=== PATIENT | male | born 1950 | race Caucasian/White ===

== ENCOUNTER 2018-08-22 09:41 | Emergency (ER) | payer OTHER ==
[~2018-08-22] VITALS: Ht 198.1 cm; Wt 90.7 kg
[~2018-08-22 09:41] MED LIST: ALBU90OI61 INH; AMLO5 PO; ASPI325EC PO; ATOR10 PO; CEPH500 PO; CIPRO500 MG PO; ESOM20; Flomax0.4 MG PO; HYDACE7.5 PO; INSN100I; INSR10I; INSULANPEN SC; Ibuprofen Ib200 MG PO; LISI20 PO; LISI5; METF500; METF500C PO; Mobic7.5 MG PO; Omeprazole20 M1 PO; Percocet 10-321 EACH PO; Percocet 5-3251 EACH PO; TRAM50 PO; Zofran Odt4 MG SL
[2018-08-22 11:39] LABS: BASOPHILS ABSOLUTE AUTO 0.05 K/mm3 (0.00-0.23); BASOPHILS PERCENT AUTO 1 % (0-2); EOSINOPHILS ABSOLUTE AUTO 0.03 K/mm3 (0.00-0.68); EOSINOPHILS PERCENT AUTO 0 % (0-6); Hematocrit 34.1 % (37.0-53.0); Hemoglobin 11.4 g/dL (13.5-17.5); IMMATURE GRAN ABSOLUTE AUTO 0.03 K/mm3 (0.00-0.10); IMMATURE GRAN PERCENT AUTO 0 % (0-1); LYMPHOCYTES ABSOLUTE AUTO 1.99 K/mm3 (0.84-5.20); LYMPHOCYTES PERCENT AUTO 21 % (21-46); MONOCYTES PERCENT AUTO 6 % (4-13); Mean Corpuscular HGB 29.9 pg (26.0-34.0); Mean Corpuscular HGB Conc 33.4 g/dL (31.5-36.5); Mean Corpuscular Volume 90 fL (80-100); Mean Platelet Volume 9.8 fL (9.1-12.4); NEUTROPHILS ABSOLUTE AUTO 7.03 K/mm3 (1.96-9.15); NEUTROPHILS PERCENT AUTO 72 % (41-73); Platelet Count 515 K/mm3 (150-400); RDW Coefficient Variation 12.4 % (11.7-14.2); RDW Standard Deviation 40.2 fL (35.1-46.3); Red Blood Cell Count 3.81 M/mm3 (4.30-5.90); White Blood Cell Count 9.73 K/mm3 (4.00-11.30)
== END 2018-08-22 14:20 | disposition home or self-care (01) ==
LOC: ER 09:41
PROVIDERS: Physician Assistant
DX: M96.830 Postprocedural hemorrhage of a musculoskeletal structure following a musculoskeletal system procedure (principal); E11.9 Type 2 diabetes mellitus without complications; I10 Essential (primary) hypertension; J45.909 Unspecified asthma, uncomplicated; Z79.899 Other long term (current) drug therapy; Z79.4 Long term (current) use of insulin; Z79.82 Long term (current) use of aspirin; Z96.641 Presence of right artificial hip joint
CPT/HCPCS: 36415; 85025; 86850; 86900; 86901; 96372; 99283; J1170

== ENCOUNTER 2018-08-25 10:46 | Day surgery (SDC) | payer OTHER ==
[~2018-08-25] VITALS: Ht 188 cm; Wt 106.6 kg
== END 2018-08-25 22:39 | disposition home or self-care (01) ==
LOC: ORSCMMR 10:46
PROVIDERS: Orthopaedic Surgery
PROC: 0S990ZZ Drainage of Right Hip Joint, Open Approach (ICD-10-PCS; principal; 2018-08-25 12:30)
DX: M96.840 Postprocedural hematoma of a musculoskeletal structure following a musculoskeletal system procedure (principal); E11.9 Type 2 diabetes mellitus without complications; I10 Essential (primary) hypertension; Z79.4 Long term (current) use of insulin; Z79.899 Other long term (current) drug therapy
CPT/HCPCS: 82947; J0690; J1100; J1885; J2250; J2405; J2710; J3010; J7120

== ENCOUNTER 2020-12-17 10:32 | Emergency (ER) | payer OTHER ==
[~2020-12-17] VITALS: Ht 188 cm; Wt 103.9 kg
[2020-12-17] MEDS ORDERED: CEPH500 PO (11:14)
== END 2020-12-17 11:33 | disposition home or self-care (01) ==
LOC: ER 10:32
DX: K04.7 Periapical abscess without sinus (principal); L03.211 Cellulitis of face; E11.9 Type 2 diabetes mellitus without complications; I10 Essential (primary) hypertension; Z79.4 Long term (current) use of insulin; Z79.82 Long term (current) use of aspirin; Z79.899 Other long term (current) drug therapy
CPT/HCPCS: 96372; 99283-25; J0696

== ENCOUNTER 2021-07-19 07:26 | Day surgery (SDC) | payer OTHER ==
--- NOTE | 2021-07-19 08:18 | NUR ---
07/19/21 0818 FILIPPO CHONG PT'S BLOOD PRESSURE ELEVATED IN PRE OP. DR. CRUM AND DR. LESLIE NOTIFIED. DECISION WAS MADE BY BOTH DR. CRUM AND DR. LESLIE TO CANCEL SURGERY FOR TODAY AND HAVE PT FOLLOW UP WITH PRIMARY CARE DOCTOR REGARDING BLOOD PRESSURE. PT EXPRESSED UNDERSTANDING.
== END 2021-07-19 08:11 | disposition home or self-care (01) ==
LOC: ORSCSDS 07:26
DX: G56.02 Carpal tunnel syndrome, left upper limb (principal); Z53.9 Procedure and treatment not carried out, unspecified reason
CPT/HCPCS: J0690; J7120